=== PATIENT | female | born 1930 | race Caucasian/White ===

== ENCOUNTER 2018-03-19 06:55 | Day surgery (SDC) | payer OTHER ==
[2018-03-16 12:39] LABS: Protime INR 1.11
--- NOTE | 2018-03-16 12:41 | RAD REPORT ---
EXAM DESCRIPTION: RAD - Chest Pa And Lat (2 Views) - 03/16/2018 12:27 pm CLINICAL HISTORY: Coronary artery disease Chest pain. COMPARISON: No comparisons FINDINGS: The lungs are clear. The heart is normal in size. No displaced fractures. IMPRESSION: No acute or concerning finding suspected.
[2018-03-16 12:47] LABS: Absolute Lymphocytes (CBC) 1.9 K/uL (0.7-4.9); Absolute Monocytes 0.5 K/uL (0.1-1.3); Absolute Neutrophil 3.5 K/uL (1.8-8.0); Basophils % 0.8 % (0-1.3); Eosinophils % 13.7 % (0-4.4); Hematocrit 44.8 % (36.0-45.0); Lymphocytes % 27.2 % (15.3-44.8); MCH 29.8 pg (27.0-35.0); MPV 9.5 fL (7.6-11.3); Monocytes % 7.4 % (3.3-12.3); RBC Red Blood Cell Count 4.92 M/uL (3.86-4.86)
[2018-03-16 12:56] LABS: Potassium 4.4 mmol/L (3.5-5.1)
[2018-03-16 13:38] LABS: Blood Morphology Comment NOT SEEN (NOT SEEN); Platelet Estimate ADEQ
--- NOTE | 2018-03-16 17:25 | EKG ---
Test Date: 2018-03-16 Test Time: 12:05:15 Rn Concurrent Review: KATI MEASUREMENT RESULTS: Intervals: Rate: 67 PA: 148 QRSD: 76 QT: 418 QTc: 441 Vincent: P: 79 PA: 148 QRS: 49 T: 59 INTERPRETIVE STATEMENTS: Normal sinus rhythm Normal ECG Compared to ECG 11/10/2003 12:39:00 Myocardial infarct finding no longer present Electronically Signed On 03-16-18 17:24:28 CDT by Nilo Kaplan
[2018-03-19] MEDS ORDERED: NITROGLYCERIN/D5W 25 MG/250 ML BTL IV ONE (07:12)
[2018-03-19] MEDS ORDERED: HEPA 1000U/500MLS 2,000 UNIT/1,000 ML BAG IV ONE (07:12)
[2018-03-19] MEDS ORDERED: NICARDIPINE HCL 25 MG/10 ML IV ONE (07:12)
[2018-03-19] MEDS ORDERED: HEPARIN 5000 UNIT/ML 1 ML VIAL ONE (07:12)
[2018-03-19] MEDS ORDERED: LIDOCAINE 1% 20 ML MDV ONE ×2 (07:12→09:21)
[2018-03-19] MEDS ORDERED: NA CHLORIDE 0.9% 0 ML ONE (07:13)
[2018-03-19] MEDS ORDERED: ATROPINE SULF 1 MG/10 ML SYR IV ONE (07:13)
[2018-03-19] MEDS ORDERED: NA CHLORIDE 0.9% 500 ML ONE (07:17)
[2018-03-19] MEDS ORDERED: MIDAZOLAM HCL 2 MG/2 ML INJ ONE (07:26)
[2018-03-19] MEDS ORDERED: FENTANYL CITR 100 MCG/2 ML ONE ×2 (07:26→08:45)
[2018-03-19] MEDS ORDERED: METHYLPREDNISOLONE 125 MG INJ ONE (08:10)
[2018-03-19] MEDS ORDERED: HYDRALAZINE HCL 20 MG/ML VIAL ONE (08:27)
[2018-03-19] MEDS ORDERED: ONDANSETRON 4 MG/2 ML VIAL ONE (09:17)
[2018-03-19] MEDS ORDERED: ACETAMINOPHEN 325 MG TABLET ONE (09:36)
[2018-03-19] MEDS ORDERED: AMLODIPINE 5 MG TAB PO ONE (10:00)
--- NOTE | 2018-03-19 18:42 | OP ---
Surgeon: Nilo Kaplan MD Procedures: Left heart catheterization with coronary left ventricular angiography. Findings: The patient has mild coronary plaque, LAD and right, no more than 30% stenosis. Normal le ft ventricular ejection fraction and wall motion. Left ventricular end-diastolic pressure elevated c onsistent with diastolic dysfunction, rather severe systolic hypertension. Blood pressure 198/71 at the end of the procedure. Procedure In Detail: The patient was brought to the cardiac rn lab in a fasting state, sedated wit h Versed and fentanyl, prepared and draped in usual sterile fashion. Right radial approach was used first. We entered the artery using a 21-gauge needle after anesthetizing the tissues over the right radial artery. This allowed us to place a 6-[place] Terumo sheath, however, we were unable to pass wi res through the brachial artery, so this approach was abandoned. At the end of the procedure, the ar teriotomy was closed, the sheath was removed, and a TR band was used to close the right radial artery . At no point was there loss in pulsatility of the waveform. We turned our attention into the right femoral artery. Tissues around the artery were anesthetized with lidocaine. Artery was entered usi ng an 18-gauge needle. We used a short J-wire to cannulate the artery, modified Seldinger technique, 4-[place] sheath. We used a JL4, 3DRC, angled pigtail. At the end of the procedure, the catheters w ere removed over a J-wire. A sheath shot was done. Adequate anatomy was seen, and the arteriotomy w ill be closed using an Angio-Seal device. As soon as the radial sheath was in, the cocktail was give n consisting of nicardipine, heparin, and nitroglycerin. She will receive hydralazine to get her systolic pressure less than 180 before we pull the sheath. DORIS/FRAN Voice ID: [id number] Report ID: [id number]
== END 2018-03-19 12:37 | disposition home or self-care (01) ==
LOC: CCL 06:55
PROVIDERS: ATTEND Internal Medicine
DX: I11.9 Hypertensive heart disease without heart failure (principal); I25.10 Atherosclerotic heart disease of native coronary artery without angina pectoris; E78.5 Hyperlipidemia, unspecified; Z82.49 Family history of ischemic heart disease and other diseases of the circulatory system
CPT/HCPCS: 36415; 71046; 80048; 85025; 85610; 85730; 93005; 93458; C1893; J0360; J1644; J2250; J2405; J2930; J3010 ×2; J0583

== ENCOUNTER 2020-04-03 14:48 | Emergency (ER) | payer OTHER ==
--- NOTE | 2020-04-03 16:53 | ER ---
Nurse's Notes [facility] Name: Shaista Jaramillo Age: 89 yrs Sex: Female : 1930 Arrival Date: 04/03/2020 Time: 14:55 Bed Waiting Private MD: Diagnosis: Presentation: 04/03 15:04 Chief complaint: Patient states: Sick with nausea, body aches, SOB for 2-3 weeks. ll1 Daughter noticed confusion today. Feels jittery and ringing in ears. Covid test negative last week. Coronavirus screen: Patient denies a cough. Patient reports shortness of breath or difficulty breathing. Patient denies measured and/or subjective temperature greater than 100.4F prior to today's visit. Patient denies travel on a cruise ship or to a country the [facility] currently lists as an affected area. Patient denies contact with known and/or suspected case of COVID-19. Patient was placed back in the lobby due to no available rooms at this time. Patient was instructed to always wear their mask and to isolate themselves as much as possible from others in the lobby. Ebola Screen: Patient denies travel to an Ebola-affected area in the 21 days before illness onset. Initial Sepsis Screen: Does the patient meet any 2 criteria? No. Patient's initial sepsis screen is negative. Risk Assessment: Do you want to hurt yourself or someone else? Patient reports no desire to harm self or others. Onset of symptoms was March 20, 2020. 15:04 Method Of Arrival: Ambulatory ll1 15:04 Acuity: MONSTER 2 ll1 Historical: - Allergies: 15:06 Iodinated Contrast Media - IV Dye; ll1 - PSHx: 15:06 None; ll1 - Immunization history:: Flu vaccine is up to date. - Social history:: Smoking status: Patient denies any tobacco usage or history of. Patient/guardian denies using alcohol, street drugs, tobacco products. Vital Signs: 15:04 BP 140 / 69; Pulse 74; Resp 17; Temp 99.0; Pulse Ox 97% ; Weight 72.57 kg; Height 5 ft. ll1 4 in. (162.56 cm); Pain 0/10; 15:04 Body Mass Index 27.46 (72.57 kg, 162.56 cm) ll1 ED Course: 14:55 Patient arrived in ED. fj1 15:06 Triage completed. ll1 15:06 Arm band placed on Patient notified of wait time. ll1 16:25 Not in lobby or waiting room when called to ER room. Told registration they were ll1 leaving. Tried to call number listed on chart, no answer. 16:25 Notified Charge Nurse of Left without being seen. ll1 Administered Medications: No medications were administered Outcome: 16:53 Patient left the ED. 1 Signatures: Juan Carlos Dominguez 1 Kd Pride, RN RN 1 Corrections: (The following items were deleted from the chart) 15:07 15:04 Acuity: MONSTER 3 ll1 ll1 16:52 16:50 No tin lobby or waiting room when called to ER room. Told registration they were ll1 leaving. Tried to call number listed on chart, no answer. 1
[2020-04-03 17:45] VITALS: BP 140/69; TEMP 99; O2SAT 97
== END 2020-04-03 16:53 | disposition left against medical advice (07) ==
LOC: ER 14:48
DX: Z53.21 Procedure and treatment not carried out due to patient leaving prior to being seen by health care provider (principal)
CPT/HCPCS: 99281